=== PATIENT | female | born 1965 | race American Indian/Alaskan Native ===

== ENCOUNTER 2017-01-05 22:13 | Emergency (ER) | payer MEDICAID ==
[2017-01-06 00:12] LABS: Basophils % (Auto) 0.4 % (0.0-1.8); Eosinophils % (Auto) 1.7 % (0.0-4.3); Hematocrit 44.4 % (30.3-42.9); Hemoglobin 14.6 gm/dl (10.1-14.3); Mean Corpuscular HGB Conc 33 % (30-34); Mean Corpuscular Hemoglobin 33 pg (28-32); Mean Corpuscular Volume 100 fl (79-97); Platelet Count 258 K/mm3 (140-440); Red Blood Count 4.44 M/mm3 (3.65-5.03); Red Cell Distribution Width 13.5 % (13.2-15.2); White Blood Count 8.4 K/mm3 (4.5-11.0)
[2017-01-06 00:32] LABS: Anion Gap 17 mmol/L; BUN/Creatinine Ratio 12; Blood Urea Nitrogen 11 mg/dL (7-17); Calcium 9.8 mg/dL (8.4-10.2); Carbon Dioxide 29 mmol/L (22-30); Chloride 102.3 mmol/L (98-107); Glucose 93 mg/dL (65-100); Potassium 5.1 mmol/L (3.6-5.0); Sodium 143 mmol/L (137-145)
[2017-01-06] MEDS ORDERED: MORPHINE IM ONE (12:36)
[2017-01-06] MEDS ORDERED: ZOFRAN IM ONE (12:36)
[2017-01-06] MEDS ORDERED: TORADOL IM ONE (12:37)
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
--- NOTE | 2017-01-06 13:24 | XRay Report ---
Left shoulder: Pain. There are 2 circumscribed non-sclerotic lucencies along the superior margin of the scapula just posterior to the glenoid articulation with the humerus. With this exception the bones, joints, and soft tissues are unremarkable. 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
[2017-01-06 14:35] VITALS: BP 172/94
== END 2017-01-06 14:34 | disposition home or self-care (01) ==
LOC: ED 22:13
DX: M25.512 Pain in left shoulder (principal); I10 Essential (primary) hypertension; X58.XXXA Exposure to other specified factors, initial encounter; Y93.89 Activity, other specified; Y92.89 Other specified places as the place of occurrence of the external cause; Y99.8 Other external cause status
CPT/HCPCS: 36415; 73030; 80048; 85025; 93005; 93010; 96372; 99284; J1885; J2270; J2405